=== PATIENT | male | born 1995 | race African-American/Black ===

== ENCOUNTER 2017-01-06 22:25 | Emergency (ER) | payer MEDICAID ==
--- NOTE | 2017-01-07 00:34 | ER Document Report ---
ED General - General Chief Complaint: Other Stated Complaint: STOMACH PROBLEM Time Seen by Provider: 01/07/17 00:34 Mode of Arrival: Ambulatory Information source: Patient Notes: Patient is a 21-year-old -[place] male who presents to the ER today for "feeling like my heart is beating in my stomach." Patient points to his upper abdomen, stating that it feels like his heart is beating faster and it started hurting today as well in that area. He describes the pain as a burning pain that radiates upward into his chest. He denies any nausea, vomiting, diarrhea, shortness of breath, fever, chills cough or other symptoms. He denies any cardiac history. TRAVEL OUTSIDE OF THE [place] IN LAST 30 DAYS: No - Related Data Allergies/Adverse Reactions: No Known Allergies Allergy (Verified 05/21/13 18:42) Past Medical History - General Information source: Patient - Social History Smoking Status: Current Every Day Smoker Chew tobacco use (# tins/day): No Frequency of alcohol use: Occasional Drug Abuse: Marijuana Family History: Reviewed & Not Pertinent Patient has suicidal ideation: No Patient has homicidal ideation: No Renal/ Medical History: Denies: Hx Peritoneal Dialysis - Immunizations Immunizations up to date: Yes Review of Systems - Review of Systems Constitutional: No symptoms reported EENT: No symptoms reported Cardiovascular: No symptoms reported Respiratory: No symptoms reported Gastrointestinal: See HPI Genitourinary: No symptoms reported Male Genitourinary: No symptoms reported Musculoskeletal: No symptoms reported Skin: No symptoms reported Hematologic/Lymphatic: No symptoms reported Neurological/Psychological: No symptoms reported Physical Exam - Vital signs Vitals: Temp Pulse Resp BP Pulse Ox 98.3 F 60 18 146/69 H 100 01/06/17 22:35 01/06/17 22:35 01/06/17 22:35 01/06/17 22:35 01/06/17 22:35 - Notes Notes: PHYSICAL EXAMINATION: GENERAL: Well-appearing and in no acute distress. HEAD: Atraumatic, normocephalic. EYES: Pupils equal round and reactive to light, extraocular movements intact, sclera anicteric, conjunctiva are normal. NECK: Normal range of motion, supple without lymphadenopathy LUNGS: CTAB and equal. No wheezes rales or rhonchi. HEART: Regular rate and rhythm without murmurs ABDOMEN: Soft, mild epigastric tenderness. No guarding, no rebound BACK: no vertebral tenderness, normal ROM GI/: no CVA tenderness EXTREMITIES: Normal range of motion, no pitting edema. No cyanosis. NEUROLOGICAL: Cranial nerves grossly intact. Normal sensory/motor exams. PSYCH: Normal mood, normal affect. SKIN: Warm, Dry, normal turgor, no rashes or lesions noted Course - Re-evaluation Re-evalutation: 01/07/17 01:26 Patient feels better after GI cocktail, epigastric pain is gone. EKG reveals a normal sinus rhythm with a rate of 63 bpm with no evidence of ischemia or abnormality. Patient to follow-up with primary care provider. - Vital Signs Vital signs: Temp Pulse Resp BP Pulse Ox 98.3 F 60 18 146/69 H 100 01/06/17 22:35 01/06/17 22:35 01/06/17 22:35 01/06/17 22:35 01/06/17 22:35 Discharge - Discharge Clinical Impression: Epigastric pain Condition: Stable Disposition: HOME, SELF-CARE Additional Instructions: Return immediately for any new or worsening symptoms. Follow up with primary care provider, call tomorrow to make followup appointment. Prescriptions: Omeprazole Magnesium [Prilosec Otc] 20 mg PO BID #20 tablet. Sucralfate [Carafate 1 gm Tablet] 1 gm PO ACHS #40 tablet
[2017-01-07] MEDS ORDERED: LIDOCAINE 2% VISCOUS SOLN 20 ML UDCUP PO ONE (00:40)
[2017-01-07] MEDS ORDERED: METOCLOPRAMIDE HCL ORAL SOLN 10 MG/10 ML UDCUP PO ONE (00:40)
[2017-01-07] MEDS ORDERED: MAG HYDROX/AL HYDROX/SIMETH SUSP 30 ML UDCUP PO ONE (00:40)
[2017-01-07] MEDS ORDERED: SUCRALFATE 1 GM TABLET PO ONE (01:28)
[2017-01-07] MEDS ORDERED: FAMOTIDINE 20 MG TABLET PO ONE (01:28)
[2017-01-07 01:42] VITALS: BP 135/70
--- NOTE | 2017-01-07 07:53 | EKG REPORT ---
SEVERITY:- NORMAL ECG - SINUS RHYTHM ST ELEV, PROBABLE NORMAL EARLY REPOL PATTERN : Confirmed by: Marcello Cuellar MD 07-Jan-2017 07:52:15
== END 2017-01-07 01:40 | disposition home or self-care (01) ==
LOC: ER 22:25
DX: R10.13 Epigastric pain (principal); R10.10 Upper abdominal pain, unspecified; F17.200 Nicotine dependence, unspecified, uncomplicated
CPT/HCPCS: 93005; 99284; 93010; J3490 ×5

== ENCOUNTER 2018-09-16 05:22 | Emergency (ER) | payer SELFPAY ==
--- NOTE | 2018-09-16 08:26 | ER Document Report ---
HPI - HPI Patient complains to provider of: L shoulder pain, "something stuck in my throat" Time Seen by Provider: 09/16/18 07:51 Pain Level: 3 Context: 23-year-old male with no past medical history presents emergency department with left shoulder pain and "feels like there is something stuck in my throat ". Patient says that he believes there is something off in his shoulder and it is always "popping ". Patient says this is a chronic issue. It is not acute. Patient denies any trauma, warmth or redness to the left shoulder, fevers. Patient also complains of the sensation of something being stuck in his throat. He said he was drinking Mountain Dew earlier this morning and he was unable to burp. Patient states that it is worse when he lays down and it keeps him up at night. He states that it is improved after sitting up. Patient denies any epigastric burning, nausea, vomiting. He is able to eat and drink. - MUSCULOSKELETAL Musculoskeletal: REPORTS: Extremity pain Past Medical History - Social History Smoking Status: Current Every Day Smoker Frequency of alcohol use: None Drug Abuse: None Family History: Reviewed & Not Pertinent Patient has suicidal ideation: No Patient has homicidal ideation: No Renal/ Medical History: Denies: Hx Peritoneal Dialysis - Immunizations Immunizations up to date: Yes Vertical Provider Document - CONSTITUTIONAL Notes: PHYSICAL EXAMINATION: Reviewed vital signs and charting by RN GENERAL: Alert, interacts well. No acute distress. HEAD: Normocephalic, atraumatic. EYES: Pupils equal, round. Extraocular movements intact. NECK: Full range of motion. Supple. Trachea midline. LUNGS: Clear to auscultation bilaterally, no wheezes, rales, or rhonchi. No respiratory distress. HEART: Regular rate and rhythm. No murmur ABDOMEN: soft, non-tender. Non-distended. Bowel sounds present in all 4 quadrants. no McBurney's point tenderness, no Dowd sign. EXTREMITIES: Moves all 4 extremities spontaneously. No edema, No cyanosis. Left shoulder AC joint appears more elevated than the right. Active range of motion crepitus noted over the AC joint and the scapular spine. NEUROLOGICAL: Alert and oriented x3. Normal speech. PSYCH: Normal affect, normal mood. SKIN: Warm, dry, normal turgor. No rashes or lesions noted. - INFECTION CONTROL TRAVEL OUTSIDE OF THE [place] IN LAST 30 DAYS: No Course - Re-evaluation Re-evalutation: 09/16/18 09:09 Well-appearing 23-year-old male presents with chronic left shoulder pain and popping. There is a mild deformity with the left distal clavicle slightly elevated compared to the right. X-ray was negative for any acute finding or pathology. Also, patient complaining of sensation of something being stuck in his chest. Upon further investigation and interview patient says it is worse at night when laying down improves when sitting up and most likely represents acid reflux. Recommendation is to iodine. Also, I will give him referral for orthopedics. - Vital Signs Vital signs: Temp Pulse Resp BP Pulse Ox 98.5 F 111 H 15 137/91 H 99 09/16/18 05:29 09/16/18 05:29 09/16/18 05:29 09/16/18 05:29 09/16/18 05:29 Discharge - Discharge Clinical Impression: Left shoulder pain Qualifiers: Chronicity: chronic Qualified Code(s): M25.512 - Pain in left shoulder; G89.29 - Other chronic pain Condition: Good Disposition: HOME, SELF-CARE Instructions: Shoulder Injury (OM) Additional Instructions: You were seen in the emergency department this morning for a left shoulder injury that is chronic in nature. X-ray was negative for any concerning dislocation or break. You can take Motrin 600 mg every 6 hours with food or milk and or Tylenol 1000 mg every 6 hours for pain. I have given [facility]. Please call them today to set up an appointment for evaluation. Also, please establish care with a primary care provider and they can better manage your condition with your swallowing. It is recommended that you take a medication called ranitidine [id number]. Please take it 30-60 minutes before eating and take it twice a day. Patient is also known as Zantac. If you do are unable to pass liquids or food, have persistent vomiting, develop high fever, or any other concerning symptoms please immediately return to the emergency department. If your shoulder becomes red or hot, you develop fever with that, or you are unable to move the shoulder please immediately return to the emergency department. Referrals: JUVENAL RODRIGUEZ MD [ACTIVE STAFF] - Follow up as needed
--- NOTE | 2018-09-16 08:52 | RADIOLOGY REPORT (SQ) ---
EXAM DESCRIPTION: SHOULDER LEFT 2 OR MORE VIEWS COMPLETED DATE/TIME: 09/16/2018 8:42 am REASON FOR STUDY: pain, crepitus, deformity COMPARISON: 05/21/2013 NUMBER OF VIEWS: Three views. TECHNIQUE: Internal rotation, external rotation, and Y view images acquired of the left shoulder. LIMITATIONS: None. FINDINGS: MINERALIZATION: Normal. BONES: No acute fracture or dislocation. No worrisome bone lesions. JOINTS: No dislocation. VISUALIZED LUNGS AND RIBS: No pneumothorax. No rib fracture. SOFT TISSUES: No radiopaque foreign body. OTHER: No other significant finding. IMPRESSION: NEGATIVE STUDY OF THE LEFT SHOULDER. NO RADIOGRAPHIC EVIDENCE OF ACUTE INJURY. TECHNICAL DOCUMENTATION: JOB ID: [id number] [email or web address]- All Rights Reserved Reading location - IP/workstation name: [email or web address]
[2018-09-16 09:26] VITALS: BP 125/73
== END 2018-09-16 09:30 | disposition home or self-care (01) ==
LOC: ER 05:22
DX: M25.512 Pain in left shoulder (principal); G89.29 Other chronic pain; R09.89 Other specified symptoms and signs involving the circulatory and respiratory systems; F17.200 Nicotine dependence, unspecified, uncomplicated
CPT/HCPCS: 99283